=== PATIENT | male | born 1990 | race Caucasian/White ===

== ENCOUNTER 2018-03-27 14:17 | Emergency (ER) | payer SELFPAY ==
[2018-03-27 14:25] VITALS: BP 123/81; PULSE 82; RESP 15; TEMP 36.5; O2SAT 99; BMI 25.0
== END 2018-03-27 15:28 | disposition left against medical advice (07) ==
PROVIDERS: Emergency Provider Emergency Medicine; PCP Family Medicine Sports Medicine
DX: R07.9 Chest pain, unspecified (principal)
CPT/HCPCS: 99281; 99282

== ENCOUNTER 2022-06-21 06:32 | Day surgery (SDC) | payer OTHER, SELFPAY ==
[2022-06-16 15:10] VITALS: BMI 24.7
[2022-06-21] VITALS (15 sets, daily range): BP systolic 84–135; BP diastolic 47–100; PULSE 54–98; RESP 10–20; TEMP 36.2–36.9; O2SAT 58–100; BMI 25.0
[2022-06-21] MEDS: LACTATED RINGERS 1,000 ML 42 ML IV (07:29)
[2022-06-21] MEDS: ACETAMINOPHEN 325 MG TABLET 975 MG PO (07:29)
[2022-06-21] MEDS: GABAPENTIN 600 MG TABLET PO (07:29)
--- NOTE | 2022-06-21 07:42 | PM.PREOP ---
Pre-operative Note COVID-19 COVID-19 status: Not tested Criteria for continued procedure: Expected advancement of disease process, Possibility delay results in more complex future surgery or treatment, Increased loss of function, Continuing or worsening of significant or severe pain, Deterioration of the patient's condition or overall health and Delay expected to result in less-positive ultimate med/surg outcome Interval Note History & Physical reviewed/Exam performed by Physician: Yes Changes to H&P: No
[2022-06-21] MEDS: CEFAZOLIN 2 GM/100 ML PREMIX 100 ML IV (08:18)
--- NOTE | 2022-06-21 08:34 | SUR.OPER ---
Supine on padded OR bed, head on pillow, arms secured on padded arm boards at <90 degrees abduction, legs uncrossed, safety belt at thigh, tape over blanket over lower legs.
[2022-06-21] MEDS: BUPIVACAINE 0.25% (PF) 30 ML, EPINEPHrine 0.3 MG INJ (08:45)
[2022-06-21] MEDS: methylPREDNISolone acet DEPO 40 MG/ML VIAL INJ (08:46)
--- NOTE | 2022-06-21 09:53 | P.OP_ITS ---
Operative Date/Time/Diagnoses Date of procedure: 06/21/22 Time of procedure: 08:00 Pre-op diagnosis: 1. L4-5, L5-S1 disc herniation with radiculopathy 2. Spinal Stenosis Post-op diagnosis: same Procedure & Clinicians Procedure: 1. L4-5 right microdiscectomy 2. L5-S1 left microdiscectomy 3. Utilization of microsurgical technique and operating microscope Same procedure as scheduled: Yes Indications: Patient has been having back pain and worsening lumbar radiculopathy affecting both legs due to a work injury. Patient failed multiple conservative management with worsening pain weakness and numbness in his lower extremity. Patient has been having difficulty performing activity of daily living. After discussing risks benefits of treatment options, patient elected proceed with surgery. Surgeon: Katie Segundo Can Bander Operator: Christina Padilla Click Yes if Unassisted: No Anesthesia Type: General Operative Notes Closure Type: primary Specimen(s): none sent Estimated Blood Loss (mL): 5 Blood products transfused: none Procedure in detail: Patient was seen in the preoperative area. Risks and benefits of the surgery was discussed with the patient. Informed consent was obtained from the patient and placed in the chart. Surgical site was marked. Patient was taken to the operative room. General anesthesia was administered. Prophylactic antibiotic was given to the patient less than 30 min before the incision was made. Patient was placed into a prone position on the Crispin table. Patient's back was then prepped and draped in the sterile fashion. Time-out was performed at this time. Using AP and lateral C-arm imaging the interval between L4-5 was identified and marked on patient's back. A 1 inch incision 1 in from midline was made on the right side. The fascia was incised in line with skin incision. Globus MARS retractors was placed inside the incision and docked onto the L4 lamina. Using microsurgical technique and operating microscope, a L4 laminotomy was performed using a Kerrison rongeur. Liagamentum flavum was resected at the site of the laminotomy. The disc space at L4-5 was identified. Microdiscectomy was performed by incising the annulus with #11 blade. Microcurettes and pituitary was used to removed herniated disc fragments of disc from the epidural space. After the microdiskectomy at L4-5 was completed, the area medial lateral superior and inferior to the area of the microdiskectomy was inspected and explored using a micro curette. No other impinging structure was identified. A separate incision was made over the L5-S1 level on the left side. The MARs retractor was then redirected over the L5-S1 level under x-ray guidance and docked on the L5 lamina. Using microsurgical technique and operating microscope, a L5 laminotomy was performed using a Kerrison rongeur. Liagamentum flavum was resected at the site of the laminotomy. The disc space at L5-S1 was identified. Microdiscectomy was performed by incising the annulus with #11 blade. Microcurettes and pituitary was used to removed herniated disc fragments of disc from the epidural space. After the microdiskectomy at L5-S1 was completed, the area medial lateral superior and inferior to the area of the microdiskectomy was inspected and explored using a micro curette. No other impinging structure was identified. The wound was then irrigated with sterile normal saline. 40 mg Depo-Medrol was placed into the epidural space. The deep fascia was closed with 1-0 Vicryl. The subcutaneous tissue was closed with 2-0 Vicryl. The skin was closed with skin mark. Patient tolerated the procedure well. There were no complications. Patient was transferred recovery room in stable condition. Complications: none Post-operative Condition: stable Disposition: PACU Plan for aftercare: Admit to inpatient hospital
--- NOTE | 2022-06-21 09:55 | DI.RAD.S_ITS ---
PROCEDURE: XR LUMBAR SPINE 2-3V INDICATIONS: L4-5, L5-S1 TLIF TECHNIQUE: 2 views of the lumbar spine were acquired. COMPARISON: [facility] MR, MR LUMBAR SPINE WITHOUT CONTRAST, 02/14/2022, 16:00. [facility] Outside [facility], CR, XR LUMBAR SPINE 2 OR 3 VIEWS, 11/22/2021, 13:29. FINDINGS: Intraoperative image demonstrating localization overlying L5. Degenerative disc and foraminal narrowing are present L5. IMPRESSION: Intraoperative localization. Dictated by: Dulce Landis M.D. on 06/21/2022 at 20:50 Approved by: Dulce Landis M.D. on 06/21/2022 at 20:51
[2022-06-21] MEDS: fentaNYL 100 MCG/2 ML INJ IV ×2 (10:25→10:39)
[2022-06-21] MEDS: OXYCODONE IR 5 MG TABLET PO (10:32)
--- NOTE | 2022-06-21 11:37 | SUR.PHASEII ---
Pt voided, no pain, no numbness or tingling.
== END 2022-06-21 11:40 | disposition home or self-care (01) ==
PROVIDERS: PCP Family Medicine Sports Medicine; Referring Provider Orthopaedic Surgery Orthopaedic Surgery of the Spine; Visit Provider Orthopaedic Surgery Orthopaedic Surgery of the Spine
PROC: (CPT 63030; principal; 2022-06-21 07:45)
DX: M51.26 Other intervertebral disc displacement, lumbar region (principal); M54.17 Radiculopathy, lumbosacral region; J45.909 Unspecified asthma, uncomplicated; Y93.H3 Activity, building and construction; Y92.89 Other specified places as the place of occurrence of the external cause; Y99.0 Civilian activity done for income or pay
CPT/HCPCS: 63030; 63035; 72100; 76000; J0171; J0330; J0690; J1030; J1100; J1170; J1885; J2405; J2704; J3010

== ENCOUNTER 2023-05-28 10:04 | Inpatient (IN) | payer OTHER, SELFPAY ==
[2023-04-26 09:43] VITALS: BMI 24.5
[2023-05-28] VITALS (12 sets, daily range): BP systolic 89–136; BP diastolic 52–93; PULSE 65–125; RESP 14–18; TEMP 36.2–37; O2SAT 94–100; BMI 24.5
--- NOTE | 2023-05-28 | DI.RAD.S_ITS ---
PROCEDURE: XR LUMBAR SPINE 2-3V INDICATIONS: L4-5 TLIF, L5-S1 HEMILAMINECTOMY TECHNIQUE: Three intraoperative fluoroscopic views of the lumbar spine were acquired. COMPARISON: [facility], , XR LUMBAR SPINE 2-3V, 06/21/2022, 8:32. FINDINGS: Intraoperative fluoroscopy demonstrates L4-5 disc spacer and subsequent transpedicular screws at L4 and L5. Alignment is maintained. IMPRESSION: Intraoperative fluoroscopy for L4-5 fusion. Dictated by: Rhiannon Rivero M.D. on 05/28/2023 at 13:58 Approved by: Rhiannon Rivero M.D. on 05/28/2023 at 13:59
[2023-05-28] MEDS: LACTATED RINGERS 1,000 ML 42 ML IV ×2 (10:23→12:16)
[2023-05-28] MEDS: ACETAMINOPHEN 325 MG TABLET 975 MG PO (10:28)
[2023-05-28] MEDS: GABAPENTIN 300 MG CAPSULE PO (10:29)
--- NOTE | 2023-05-28 11:01 | PM.HP.1 ---
History of Present Illness History of Present Illness Date Patient Seen: 05/28/23 Time Patient Seen: 11:03 Date of Onset of Symptoms: 11/12/21 Chief complaint: Lumbar Hemilaminectomy Narrative: Mr. Segovia is a 33 yo M with history of work injury on 11/12/21 which caused his radiculopathy to limit his mobility. He is s/p RIGHT L4-5 and LEFT L5-S1 microdiscectomy completed 06/21/2022. He has persisting pain to the left leg with pain, weakness and numbness. He had earlier improvement of his symptoms post surgery but his symptoms worsened over the last 2 months. He tried activities modification and medications with no relief. [facility] Medical History (Updated 04/26/23 @ 10:16 by Nena Galloway RN) History of COVID-19 (~12/2022) IBS (irritable bowel syndrome) Acid reflux Chronic diarrhea Anesthesia complication Asthma Protruded lumbar disc Lumbar radiculopathy Surgical History (Updated 04/26/23 @ 10:07 by Nena Galloway RN) History of esophagogastroduodenoscopy (EGD) Hx of colonoscopy Hx of microdiscectomy (06/21/22) Social History household members: family Smoking Status: Never smoker alcohol intake: former Meds Home Medications and Allergies Home Medications Medication Instructions Recorded Confirmed Type albuterol sulfate 90 mcg/actuation 2 puff inhalation Q4H PRN 03/27/18 04/26/23 History aerosol inhaler Shortness Of Breath Or Wheezing ipratropium 0.5 mg-albuterol 3 mg 3 ml inhalation QID PRN Shortness 03/27/18 04/26/23 History (2.5 mg base)/3 mL nebulization Of Breath Or Wheezing soln loperamide 2 mg-simethicone 125 mg 2 tab PO QAM 04/26/23 05/28/23 History tablet Allergies Allergy/AdvReac Type Severity Reaction Status Date / Time No Known Drug Allergies Allergy Verified 05/28/23 10:46 Review of Systems Review of Systems ROS: Yes All systems reviewed with the patient and are negative except as otherwise documented Exam Vital Signs (past 8 hours): - 05/28/23 10:36 Temperature 97.2 F L Pulse Rate 92 H Respiratory Rate 18 Blood Pressure 132/84 Pulse Oximetry 100 Oxygen Delivery Method Room Air Oxygen Delivery Method Room Air Const General: cooperative Back/Spine/Pelvis Other: pain with ROM of lumbar spine. Previous scar well healed. No skin lesions. Neuro Other: + straight leg raise to LLE, sensibility decreased to bilateral L5 and left S1 dermatome, motor strength 4/5 in bilateral EHL and left gastroc. DTR 1 / 3 in left achilles. Assessment & Plan Assessment & Plan narrative: Mr. Patterson is here forhis lumbar. He has been treating his back and leg pain since 11/12/21 due to a work injury. He had previous lumbar microdiscectomy with temporary relief. He currently has post surgery changes along with recurrent disc herniation at L4-5 level with L5-S1 foramen narrowing. He failed multiple conservative care with worsening leg pain, weakness and numbness. He has difficulty performing activity of daily living due to his back and leg symptoms. He will benefit from total laminectomy and total facetecmies at L4-5 to fully decompress his neurologic structures, which will render his L4-5 level grossly unstable and will require a fusion procedure at the same time. Risks for surgery include but not limited to bleeding, infection, nerve/dura/bladder/bowel/blood vessel injury, need for additional procedure, even . Patient understands and would like to proceed with surgery. I scheduled him for L4-5 TLIF and L5-S1 hemilaminectomy.
[2023-05-28] MEDS: CEFAZOLIN 2 GM/100 ML PREMIX 100 ML IV ×2 (11:20→20:39)
--- NOTE | 2023-05-28 11:49 | SUR.OPER ---
Prone on spine table, head in foam head support, padded chest and pelvic supports, gel pad at knees, lower legs supported by pillows; nipples, genitalia and toes free of pressure, arms secured on foam padded arm boards at <90 degrees abduction. Tape over blanket at thigh secured to table.
[2023-05-28] MEDS: BUPIVACAINE LIPOSOME 266 MG/20 ML VIAL INJ (11:57)
[2023-05-28] MEDS: BUPIVACAINE 0.25% (PF) 60 ML, EPINEPHrine 0.15 MG INJ (11:58)
--- NOTE | 2023-05-28 13:50 | P.OP_ITS ---
Operative Date/Time/Diagnoses Date of procedure: 05/28/23 Time of procedure: 11:00 Pre-op diagnosis: 1. L4-5 recurrent disc herniation 2. History of L4-5, L5-S1 microdiscectomy with epidural scarring 3. L5-S1 lateral recess stenosis with radiculopathy Post-op diagnosis: same Procedure & Clinicians Procedure: 1. L4-5 Postero-lateral and posterior interbody fusion 2. L4-5 interbody cage placement. 3. L4-5 decompressive laminectomy with bilateral facetecomies 4. L4-5 Posterior non-segmental instrumentation 5. Left L5-S1 hemilaminectomy 6. [place] of bone marrow from iliac crest 7. Utilization of microsurgical technique and operating microscope Same procedure as scheduled: Yes Indications: Patient has been having chronic back pain and worsening lumbar radiculopathy. Patient has been having progressive leg pain weakness and numbness with history of lumbar microdiskectomy at both L4-5 L5-S1 level. Patient's MRI showed a recurrent disc herniation L4-5 with residual lateral recess stenosis at L5-S1 correlating with his symptoms. Patient failed multiple conservative management with worsening pain weakness and numbness in his lower extremity. Patient has been having difficulty performing activity of daily living. After discussing risks benefits of treatment options, patient elected proceed with surgery. Surgeon: Katie Segundo Motor Driver: Christina Padilla Click Yes if Unassisted: No Anesthesia Type: General Operative Notes Closure Type: primary Specimen(s): none sent Prosthetic devices, grafts, tissues, transplants, or devices: Globus revolve screws, Rise cage Estimated Blood Loss (mL): 50 Blood products transfused: none Procedure in detail: Patient was seen in the preoperative area. Risks and benefits of the surgery was discussed with the patient. Informed consent was obtained from the patient and placed in the chart. Surgical site was marked. Patient was taken to the operative room. General anesthesia was administered. Prophylactic antibiotic was given to the patient less than 30 min before the incision was made. Patient was placed into a prone position on the Crispin table. Patient's back was then prepped and draped in the sterile fashion. Time-out was performed at this time. Using AP and lateral C-arm imaging the interval between L4-5 was identified and marked on patient's back. A 2 inch incision 2 in from midline was made on the left side first. The fascia was incised in line with skin incision. Globus MARS retractors was placed inside the incision and docked onto the L4 lamina. Using microsurgical technique and operating microscope, a L4 laminectomy and L4-5 facetectomy was performed using a Kerrison rongeur. The laminectomy and facetectomy was performed in order to decompress patient's cauda equina as well as the nerve roots exiting at the L4-5 level. Patient was found have scant amount of epidural scarring from prior surgery which was carefully resected during the process of decompression. The disc space at L4-5 was identified. And a total diskectomy was performed at L4-5 level. The endplates were decorticated using a rasp and shaver. The total diskectomy and decortication was performed at L4-5 level in order to to accomplish a L4-5 fusion. The local bone from the laminectomy and facetectomy was saved for local bone grafting. After the total diskectomy and decortication was completed, DBM bone graft material was combined with local bone that was harvested earlier. At this time, a separate skin is incision was made over the iliac crest. A Jamshidi needle was inserted into the iliac crest through a separate skin incision. 5 cc of bone marrow aspiration was obtained through the separate skin incision using a Jamshidi needle from the iliac crest. The bone marrow aspiration was combined with local bone and the DBM bone grafting material. The bone grafting material was placed into the L4-5 interbody space along with a expandable cage. The cage was expanded to its maximum height using the torque limiting screwdriver. At this time the MARS retractor was redirected over the L5 lamina. Using microsurgical technique and operating microscope, a L5-S1 heminectomy was performed using the Kerrison rongeur. The ligamentum flavum was also resected at the side of the hemilaminectomy for further decompression of the epidural space. At this time a mirror image incision was made on the right side. The fascia was incised in line with the skin incision. Globus MARS retractor was inserted and docked onto the L4-5 posterolateral gutter. Using the power drill, posterior- lateral decortication was performed at L4-5 level until bleeding cortical bone was identified. The remaining bone grafting material was placed into the L4-5 posterior lateral gutter he order to accomplish posterolateral fusion at the L4- 5 level. Using the double C-arm technique, pedicle screws were placed into the L4 and L5 pedicles bilaterally. This was done by placing the Jamshidi needle into the pedicles, then placing the guidewires over the Jamshidi needle, and finally placing the cannulated screws over the guidewires bilaterally. After the pedicle screws were placed, 2 titanium rods was locked into the heads of the pedicle screws using locking caps and torque limiting screwdriver. After all the hardware was placed, and confirmed with AP and lateral C-arm imaging, the wound was then irrigated with sterile normal saline and packed with Ray-Fer gauze for 3 min to accomplish hemostasis. After the gauze was removed the deep fascia was closed with #1 Vicryl suture. The subcutaneous layer was closed with 2-0 Vicryl. The skin was closed with skin mark. Patient tolerated the procedure well. There were no complications. The Operation could not have been safely performed without compromising the technical result or length of the procedure, without the assistance of a skilled surgical instrument technician. The surgical instrument technician was medically necessary for proper positioning, retraction and manipulation of instruments, proper exposure, surgical preparation, and manipulation of tissue. EMG and SSEP was used to monitor patient's neurological status. Patient's neuro monitors signal was stable throughout entire procedure. Complications: none Post-operative Condition: stable Disposition: PACU Plan for aftercare: Admit to inpatient hospiital
[2023-05-28] MEDS: ALBUTEROL/IPRATROPIUM 3 ML AMPUL INH (14:20)
[2023-05-28] MEDS: OXYCODONE IR 5 MG TABLET PO (14:38)
[2023-05-28] MEDS: HYDROMORPHONE 0.5 MG INJ IV (15:27)
--- NOTE | 2023-05-28 17:22 | PC.NURSE ---
Addendum entered by Alison Rogers R.N. 05/28/23 19:29: Patients heart rate up to 130s, was around 117 prior. He was also just bladder scanned for 968 and we are going to place a wright catheter now. Patient also ordered a nicotine patch. He is resting now and report given to director of audiology. Original Note: Patient to floor aroun 1500. His dressing to his lower back is cdi with xeroform gauze, mark, and tape. Patient given dilaudid iv for discomfort and helpful to patient. He has been having visitors in and out of his room and his father is also visiting. He denies numbness or tingling at this time.
[2023-05-28] MEDS: OXYCODONE IR 10 MG TABLET PO ×2 (17:41→23:11)
[2023-05-28] MEDS: LACTATED RINGERS 1,000 ML 125 ML IV (17:42)
[2023-05-28] MEDS: DOCUSATE 100 MG CAPSULE PO (20:43)
[2023-05-28] MEDS: NICOTINE 7 MG PATCH TOP (21:10)
--- NOTE | 2023-05-29 00:01 | PC.NURSE ---
Addendum entered by Nena Velazquez R.N. 05/29/23 07:01: HR in 80's while asleep, increases to 90s-low 100's while awake. States that pain has been effectively managed by ordered pain medications. 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 Tachycardic in the 120's-130's at rest, states that he has pain in the bladder from retaining urine, otherwise feels fine. Bladder scan: 970cc. Notified MD Segundo, new orders for cont tele monitoring & indwelling wright catheter. 850cc drained after wright placement, patient stated that he felt much better. HR in the low 100's after placement of urinary catheter. Incision on back is covered w/ gauze & medipore tape, CDI with a small amount of serosanguinous shadow drainage. IVF & abx infusing as ordered. SCDs are on. Educated patient on use of incentive spirometer, tolerated well. Denies N/V, chest pain, or difficulty breathing. OOB w/ 1 PA, ambulated a few steps. Oriented to call-light. Plan of care ongoing.
[2023-05-29] MEDS: HYDROMORPHONE 0.5 MG INJ IV ×4 (00:28→17:58)
[2023-05-29] MEDS: LACTATED RINGERS 1,000 ML 125 ML IV (00:59)
[2023-05-29] MEDS: OXYCODONE IR 10 MG TABLET PO ×6 (02:16→23:31)
[2023-05-29] MEDS: CEFAZOLIN 2 GM/100 ML PREMIX 100 ML IV (02:59)
[2023-05-29 06:24] VITALS: BP 114/70; PULSE 96; RESP 16; TEMP 36.4; O2SAT 100
--- NOTE | 2023-05-29 07:35 | PM.PNPO.1 ---
Subjective Subjective Date Patient Seen: 05/29/23 Time Patient Seen: 07:35 Interval history: Patient states his pain has been moderate to severe. Denies any fever chills. No nausea or vomiting. His caregiver desats shoulder surgery and will be somewhat limited in ability to assist him. Otherwise without complaints. Exam Vital Signs (past 8 hours): - 05/29/23 06:24 Temperature 97.6 F Pulse Rate 96 H Respiratory Rate 16 Blood Pressure 114/70 Pulse Oximetry 100 Oxygen Flow Rate 0 Oxygen Delivery Method Room Air Oxygen Flow Rate 0 Narrative Exam Narrative: 33-year-old male resting comfortably in bed in no apparent distress. Motor functions intact bilateral lower extremities. Sensation grossly intact to light touch bilateral lower extremities. Const General: cooperative and comfortable Nutritional Appearance: average body habitus Orientation: alert Resp Effort & Inspection: normal respiratory effort and able to speak in complete sentences [facility] Medical History History of COVID-19 (~12/2022) IBS (irritable bowel syndrome) Acid reflux Chronic diarrhea Anesthesia complication Asthma Protruded lumbar disc Lumbar radiculopathy Surgical History History of esophagogastroduodenoscopy (EGD) Hx of colonoscopy Hx of microdiscectomy (06/21/22) Social History household members: family Smoking Status: Never smoker alcohol intake: former Assessment & Plan Post-op Postoperative Procedures: Procedures Operation Date: 05/28/23 11:15 Actual Procedure Side Surgeon p L4-5 TLIF, L5-S1 hemilaminectomy Not Applicable Katie Segundo MD Postoperative day: 1 Postoperative status: doing well and marginal pain control Postoperative plan: routine post-op care Postoperative plan narrative: DC catheter. Work on pain control. Discharge home today or tomorrow Quality VTE Deep Vein Thrombosis/Pulmonary Embolism Present on Admission: No
[2023-05-29 08:00] VITALS: BP 115/60; PULSE 100; RESP 18; TEMP 36.4; O2SAT 99
[2023-05-29] MEDS: DOCUSATE 100 MG CAPSULE PO ×2 (08:10→20:38)
[2023-05-29] MEDS: SIMETHICONE 80 MG TABLET 120 MG PO (08:10)
--- NOTE | 2023-05-29 08:55 | OT.IP.EVAL ---
Current Diagnoses Other intervertebral disc displacement, lumbar region (05/28/23) Postlaminectomy syndrome, not elsewhere classified (05/28/23) Surgery Performed Operation Date: 05/28/23 11:15 Actual Procedures p L4-5 TLIF, L5-S1 hemilaminectomy(Not Applicable) - Katie Segundo MD Past Medical History (Last Reviewed 05/29/23 @ 07:36 by Aime Lozano PA-C) Acid reflux Anesthesia complication Asthma Chronic diarrhea History of COVID-19 (~12/2022) IBS (irritable bowel syndrome) Lumbar radiculopathy Protruded lumbar disc Surgical History (Last Reviewed 05/29/23 @ 07:36 by Aime Lozano PA-C) History of esophagogastroduodenoscopy (EGD) Hx of colonoscopy Hx of microdiscectomy (06/21/22) Occupational Therapy Inpatient Evaluation/Re-Eval M1 PT/OT-IP Prior Functional Status Start: 05/29/23 09:46 Freq: NEEDED Status: Active Protocol: Document 05/29/23 09:46 [facility] (Rec: 05/29/23 10:00 [facility] [id number]) Medical Review Prior Functional Status Communication independent Mobility and Gait Independent without a device but had pain. Activities of Daily Living and IADL's I, but had pain during ADl and IADL needs. Prior Functional Level (Other details) Pt thinking about staying with his sister versus dad's place for more accessible set-up and also sister's place does not have pets. Set-up based on sister's house. Social History Household Members family Living Arrangements House Number of Floors (Floors) Two Floors Number of Stairs To Enter/Railing? 1 step with left rail to enter to level where he can stay. Home Environment Standard Height Toilet,Walk in Shower,Bidet Home Equipment Front Wheel Walker,Hand Held Shower,Lift Recliner M2 OT-IP Current Condition Start: 05/29/23 09:46 Freq: Status: Active Protocol: Document 05/29/23 09:46 [facility] (Rec: 05/29/23 10:00 [facility] [id number]) Occupational Therapy Current Condition Current Condition Evaluation Date 05/29/23 Treatment Diagnosis S/P L4-5 TLIF, L5-S1 hemilaminectomy Diagnosis Onset Date 05/28/23 Post Operative Precautions Lumbar Precautions Log Roll,No Twisting,Limit Bending,Lifting Restriction of 10 lbs,Gait Belt above Incisional Area M3 OT- IP Subjective and Pain Start: 05/29/23 09:46 Freq: Status: Active Protocol: Document 05/29/23 09:46 [facility] (Rec: 05/29/23 10:00 [facility] [id number]) OT- Subjective Occupational Therapy Visit Type Type Initial Evaluation Visit Start Time 08:55 Visit Stop Time 09:45 Occupational Therapy Visit Comments Patient Comments Pt agreed to get up. Patient/Caregiver Goals To go home. OT Pain Assessment Pain When Pain Assessed At Rest Pain Present Pain Present Pain Reported Location back Intensity 5 Scale Used Numeric (0 - 10) M4 OT- IP ADL's Start: 05/29/23 09:46 Freq: Status: Active Protocol: Document 05/29/23 09:46 [facility] (Rec: 05/29/23 10:00 [facility] [id number]) OT SDJ-[id number] General Evaluation Self-Feeding Ability Independent OT ADL-Grooming Comments OT Grooming Comments Not performed as in too much pain. OT ADL-Oral Care Comments Oral Care Comments Educated to spit into a cup versus hinge at his hips to best follow his back precautions. OT ADL-Dressing General Eval Lower Body Dressing Ability Maximum Assistance Comments OT Dressing Comments ABle to practice use of LB dressing equipment for socks and underwear and educated to dress his weaker leg first, RLE and take out last. OT ADL-Toileting General Evaluation Toileting Ability Total Assistance Areas Needing Assistance Empty Catheter or Colostomy Comments OT Toileting Comments Catheter just take out at the end of the session. Pt is very heavy handed due to BLE weaken and would benefit from a BSC. OT ADL-Bathing Comments OT Bathing Comments Pt will benefit from a shower chair with arms. Educated pt of covering the dressing during showering needs to prevent it from getting wet. M5 OT- IP IADL's Start: 05/29/23:46 Freq: Status: Active Protocol: Document 05/29/23 09:46 [facility] (Rec: 05/29/23 10:00 [facility] [id number]) OT-Instrumental Activities of Daily Living Home Safety Awareness Awareness of Need for Assistance at Home Good Awareness Ability to Problem Solve Emergency Able to Problem Solve Situations Medication Management Medication Management No Deficits Identified Medication Management Comments Pt may benefit form assist initially as groggy. Money Management Money Management No Deficits Identified Meal Preparation Meal Preparation Caregiver Provides Assist Displayer Displayer Caregiver Provides Assist M6 OT- IP Functional Cognition Start: 05/29/23 09:46 Freq: Status: Active Protocol: Document 05/29/23 09:46 [facility] (Rec: 05/29/23 10:00 [facility] [id number]) Cognitive Factors Limiting Selfcare Function Cognitive Ability Level of Alertness Alert Patient Orientation Name,Age,Birthday,Month,Date, Year,Day of Week,Place, Situation Attention Span Ability Capable of Focused Attention, Capable of Sustained Attention Ability to Follow Commands Able to Follow One Step Commands Safety Awareness Decreased Ability to Apply Precautions Cognitive Comments Cognitive Assessment Comments Pt needing vc for log rolling and transitions and able to follow back precautions for ADL and mobility needs. OT- Vision and Hearing OT- Hearing Assessment OT- Hearing Assessment WFL OT- Vision Assessment Visual Acuity WFL M7 OT- IP Mobility and Balance Start: 05/29/23 09:46 Freq: Status: Active Protocol: Document 05/29/23 09:46 [facility] (Rec: 05/29/23 10:00 [facility] [id number]) OT- Bed Mobility Assessment Supine to Sit Supine to Sit Assist Minimal Assistance Sit to Supine Sit to Supine Assist Minimal Assistance Scooting Scooting to Edge of Bed Standby Assistance Scooting Up and Down in Bed Standby Assistance OT-Transfer Assessment Sit to and From Stand Sit to and from Stand Minimal Assistance Transfers Transfer Ability Contact Guard Assistance Technique Transfer Destination Bed,Chair Transfer Technique Stand Step Pivot Devices Transfer Assistive Devices Gait Belt,Front Wheeled Walker Comments Mobility Comments LESLEE to assist to help get his trunk upright and to assist to get his legs back into bed. LESLEE to stand and cues to hinge at his hips so able to get weight over his legs when comign to stand. OT- Balance Assessment Sitting Balance and Reactions Static Sitting Balance Ability Fair Dynamic Sitting Balance Ability Fair Standing Balance and Reactions Static Standing Balance Ability Fair Dynamic Standing Balance Ability Fair M8 OT- IP Objective Assessments Start: 05/29/23 09:46 Freq: Status: Active Protocol: Document 05/29/23 09:46 [facility] (Rec: 05/29/23 10:00 [facility] [id number]) OT Gross Range of Motion Upper Extremity Range of Motion ROM Impairments WFL for ADL needs today. OT Strength Comments Strength Comments WFL for ADL needs. M9 OT- IP Assessment and Plan Start: 05/29/23 09:46 Freq: Status: Active Protocol: Document 05/29/23 09:46 [facility] (Rec: 05/29/23 10:00 [facility] [id number]) OT Summary Assessment and Plan Potential Rehabilitation Potential Excellent Analytic Complexity at Evaluation Low Summary OT Impairments Pain,Strength,Balance, Functional Mobility,Grooming, Dressing,Toileting,Bathing, Toilet Transfers,Shower Transfers,Activity Tolerance Progress Towards Goals Progressing Toward Goals,Slow Progress due to Pain Assessment Summary Pt low complexity and main barriers are pain, transitions for ADl and mobility needs. Pt now thinking of going to his sister's home when medically stable. Pt will benefit from getting ADL equipment- able to write a list for the pt. Pt to go home when medically stable. Goals Self-Feeding Goal Independent Grooming Goal Independent Dressing Goal Independent,Primer And Powder Canning Leader,Sock Aid Toileting Goal Independent Bathing Goal Standby Assistance Toilet Transfer Goal Independent Shower Transfer Goal Standby Assistance Patient/Caregiver Education Goal Demonstrate Post-Op Precautions Days to Meet Goals 10 Frequency of Treatment Frequency Of Treatment Once a Day Treatment Plan OT Treatment Plan ADL Training,Functional Mobility,Patient/Family Education,Discharge Planning Discharge Recommendations OT Discharge Recommendations Home with Assistance Home Equipment Needs BSC, shower chair with armrests, LB dressing equipment Transportation Needs at Discharge Private Vehicle
--- NOTE | 2023-05-29 10:00 | PT.IIE ---
Current Diagnoses Other intervertebral disc displacement, lumbar region (05/28/23) Postlaminectomy syndrome, not elsewhere classified (05/28/23) Surgery Performed Operation Date: 05/28/23 11:15 Actual Procedures p L4-5 TLIF, L5-S1 hemilaminectomy(Not Applicable) - Katie Segundo MD Surgical History (Last Reviewed 05/29/23 @ 07:36 by Aime Lozano PA-C) History of esophagogastroduodenoscopy (EGD) Hx of colonoscopy Hx of microdiscectomy (06/21/22) Medical History (Last Reviewed 05/29/23 @ 07:36 by Aime Lozano PA-C) Acid reflux Anesthesia complication Asthma Chronic diarrhea History of COVID-19 (~12/2022) IBS (irritable bowel syndrome) Lumbar radiculopathy Protruded lumbar disc Physical Therapy Inpatient Evaluation/Re-Eval M1 PT/OT-IP Prior Functional Status Start: 05/29/23 11:52 Freq: NEEDED Status: Active Protocol: Document 05/29/23 10:00 [facility] (Rec: 05/29/23 12:10 [facility] [id number]) Medical Review Prior Functional Status Medical History Reviewed Yes Communication able to make needs known Mobility and Gait pt stated that he was independent with all mobilities and ambulation without AD Activities of Daily Living and IADL's Per OT note: I, but had pain during ADl and IADL needs. Social History Household Members family Living Arrangements House Number of Floors (Floors) Two Floors Number of Stairs To Enter/Railing? pt plans to go to her sister's house upon d/c: info provided was regarding sister's house 2 level house: pt will stay on main level of the house 2 step L rail ascending to enter the house Home Environment Standard Height Toilet,Walk in Shower,Bidet Home Equipment Front Wheel Walker,Hand Held Shower,Grab Bars Near Toilet Additional Social History Comment pt lives with his dad and step mom but dad works and step mom just had shoulder sx. pt plans to stay at her sister's house for a few days pt plans to sleep on a recliner couch M2 PT-IP Current Condition Start: 05/29/23 11:52 Freq: NEEDED Status: Active Protocol: Document 05/29/23 10:00 [facility] (Rec: 05/29/23 12:10 [id number]) Physical Therapy Current Condition Current Condition Evaluation Date 05/29/23 Treatment Diagnosis s/p L4-5 TLIF;L5S1 hemilami; difficulty in walking Onset Date 05/28/23 M3 PT-IP Subjective Start: 05/29/23 11:52 Freq: NEEDED Status: Active Protocol: Document 05/29/23 10:00 [facility] (Rec: 05/29/23 12:10 [id number]) Subjective Physical Therapy Visit Type Type Initial Evaluation Visit Start Time 10:00 Visit Stop Time 10:30 Number of DIESEL FITTER MECHANIC Visits 0 Physical Therapy Visit Comments Patient Comments agreeable to do PT Therapy Pain Assessment Pain When Pain Assessed At Rest Pain Present Pain Present Pain Reported Location back Intensity 7 Scale Used Numeric (0 - 10) Pain Management Techniques Distraction,Modification of Treatment,Re-positioning, Timing of Activity with Medications M4 PT-IP Mobility and Gait Start: 05/29/23 11:52 Freq: NEEDED Status: Active Protocol: Document 05/29/23 10:00 [facility] (Rec: 05/29/23 12:10 [id number]) PT-Bed Mobility Assessment Rolling Type of Rolling Log Rolling Level of Assist Standby Assistance Supine to Sit Supine to Sit Standby Assistance Sit to Supine Sit to Supine Standby Assistance PT-Transfer Assessment Sit to and From Stand Sit to and from Stand Minimal Assistance,1 Person Assistance,Use of Upper Extremities Equipment Transfer Assistive Device Gait Belt,Front Wheeled Walker Orthotic/Prosthetic Devices or Brace: No Comments Mobility Comments pt supine in bed. c/o increase LBP. agreed to do PT. obtained PLOF and home set up from pt. pt just finished with OT. pt able to recall his back precautions. BP in supine: 91/58. completed log roll supine<>sit SBA. able to sit on EOB SBA. BP sittin/68. completed sit to stand min A from EOB. ambulated in room using FWW min A ~ 30 ft. presents with unsteady decrease step width and decrease LE elevation in walking. pt requested to go back to bed. completed sit to supine SBA and cues. positioned pt in bed. call light and table placed within reach. informed pt regarding cargiver training and stated that he will let his family know. caregiver training set up for this afternoon at 130pm. Gait Assessment Gait Gait Assistance Required: Minimum Assistance Distance (Feet) 30 Able to Maintain Weight Bearing Status Yes During Gait Assistive Devices Assistive Device Gait Belt,Front Wheeled Walker Orthotic/Prosthetic Devices or Brace: No Gait Deviations General Gait Pattern Antalgic,Decreased Stride Length,Decreased Feet Clearance,Step-to Gait Factors Limiting Gait Function Factors Limiting Gait Function Decreased Activity Tolerance, Decreased Strength,Limited Range of Motion,Pain,Poor Balance,Poor Safety Awareness PT-Balance Assessment Sitting Balance and Reactions Static Sitting Balance Ability Good Dynamic Sitting Balance Ability Good Standing Balance and Reactions Static Standing Balance Ability Fair Dynamic Standing Balance Ability Fair Device Used FWW M5 PT-IP Objective Assessments Start: 05/29/23 11:52 Freq: NEEDED Status: Active Protocol: Document 05/29/23 10:00 [facility] (Rec: 05/29/23 12:10 AB [id number]) Orientation Orientation/Cognition Level of Alertness Alert Orientation Name,Place,Situation Language Function Ability No Deficits Noted Safety Awareness Decreased Safety Awareness Memory Description No Deficits Noted Gross Range of Motion Lower Extremity ROM Assessment Within Functional Limits Strength Lower Extremity Strength Assessment Bilaterally Impaired Hip 3+/5 Knee 3+/5 Muscle Tone Muscle Tone WNL Yes M6 PT-IP Treatment Start: 05/29/23 11:52 Freq: NEEDED Status: Active Protocol: Document 05/29/23 10:00 [facility] (Rec: 05/29/23 12:10 AB [id number]) Physical Therapy Treatment Education Education Provided Precautions,Weight Bearing Status,Safety M7 PT-IP Assessment and Plan Start: 05/29/23 11:52 Freq: NEEDED Status: Active Protocol: Document 05/29/23 10:00 [facility] (Rec: 05/29/23 12:10 AB [id number]) PT Summary Assessment and Plan Potential Rehabilitation Potential Fair Status of Condition at Evaluation Evolving Summary Impairments Pain,ROM,Strength,Balance, Coordination,Sensation,Tone, Cognition,Bed Mobility, Transfers,Gait,Activity Tolerance Assessment Summary pt is a 33 y/o M s/p L4-5 TLIF , L5S1 hemilami POD 1. pt with back precautions. pt requiring min A for transfers and ambulation using FWW. pt c /o increase back pain affecting mobility level and activity tolerance. pt plans to go to his sister's house upon d/c. caregiver training set up for this afternoon at 130 pm. will continue to assess. Goals Bed Mobility Goal Independent Transfer Goal Independent,Front Wheeled Walker Gait Goal Independent,Front Wheel Walker Gait Distance 200 Other Goals up/down 2 steps L rail ascending SBA Days to Meet Goals 5 Frequency of Treatment Frequency Of Treatment Twice a Day Treatment Plan Physical Therapy Treatment Plan Bed Mobility Training,Transfer Training,Gait Training, Therapeutic Exercise,Balance Retraining,Post Op Education, Discharge Planning,Hot or Cold Pack,Neuromuscular Re-ed, Coordination Retraining,Manual Therapy Precautions Lumbar Precautions Log Roll,No Twisting,Limit Bending,Lifting Restriction of 10 lbs,Gait Belt above Incisional Area Recommendations To Nursing Amount of Assist Needed 1 Person Assist Discharge Recommendations PT Discharge Recommendations Home with Assistance Transportation Needs at Discharge Private Vehicle
[2023-05-29 12:00] VITALS: BP 110/73; PULSE 82; RESP 16; TEMP 37.2; O2SAT 94
--- NOTE | 2023-05-29 13:40 | PT.IPTN ---
Current Diagnoses Other intervertebral disc displacement, lumbar region (05/28/23) Postlaminectomy syndrome, not elsewhere classified (05/28/23) Surgery Performed Operation Date: 05/28/23 11:15 Actual Procedures p L4-5 TLIF, L5-S1 hemilaminectomy(Not Applicable) - Katie Segundo MD Physical Therapy Treatment Note M2 PT-IP Current Condition Start: 05/29/23 11:52 Freq: NEEDED Status: Active Protocol: Document 05/29/23 10:00 AB (Rec: 05/29/23 12:10 AB [id number]) Physical Therapy Current Condition Current Condition Evaluation Date 05/29/23 Treatment Diagnosis s/p L4-5 TLIF;L5S1 hemilami; difficulty in walking Onset Date 05/28/23 M3 PT-IP Subjective Start: 05/29/23 11:52 Freq: NEEDED Status: Active Protocol: Document 05/29/23 13:40 AB (Rec: 05/29/23 16:04 AB [id number]) Subjective Physical Therapy Visit Type Type Treatment Note Visit Start Time 13:40 Visit Stop Time 14:10 Number of DISPLAY COORDINATOR Visits 0 Physical Therapy Visit Comments Patient Comments agreeable to do PT Therapy Pain Assessment Pain When Pain Assessed At Rest Pain Present Pain Present Pain Reported Location back Scale Used intense pain per pt Pain Management Techniques Distraction,Modification of Treatment,Re-positioning, Timing of Activity with Medications M4 PT-IP Mobility and Gait Start: 05/29/23 11:52 Freq: NEEDED Status: Active Protocol: Document 05/29/23 13:40 AB (Rec: 05/29/23 16:04 AB [id number]) PT-Bed Mobility Assessment Rolling Type of Rolling Log Rolling Level of Assist Standby Assistance Supine to Sit Supine to Sit Standby Assistance Sit to Supine Sit to Supine Standby Assistance PT-Transfer Assessment Sit to and From Stand Sit to and from Stand Minimal Assistance,1 Person Assistance,Use of Upper Extremities Equipment Transfer Assistive Device Gait Belt,Front Wheeled Walker Orthotic/Prosthetic Devices or Brace: No Transfers Transfer Destination Toilet Transfer Technique ambulated Transfer Ability Level of Assist Minimal Assistance,1 Person Assistance,Use of Upper Extremities Comments Mobility Comments pt supine in bed and requesting to use the toilet. pt's dad in room for training . pt stated that he is not going to her sister's house but will now going back home and pt's dad is off work to assist him. educated pt's dad regarding pt's back precautions and log roll bed mobility. pt completed log roll supine to sit SBA. able to sit on EOB SBA. educated pt 's dad regarding use of safety belt and how to assist pt. dad was able to put safety belt on pt and assisted pt with sit to stand. pt ambulated towards the toilet using FWW min A with dad assisting. pt was able to use the toilet using fWW for support CGA with dad assisting pt. pt ambulated out from the toilet and ambulated ~ 40 ft using FWW min A and sat on the chair. stair climbing training. educated pt on stair climbing. pt stated that he does not have rails with the 2 steps they have to enter the house. pt does not have a SPC but has crutches. educated pt on how to do stairs using crutches. educated pt's dad on how to assist pt. pt ambulated to the platform step using fWW min A. completed up /down platform step x 2 sets using crutches min A and cues. pt's dad was able to assist pt. pt ambulated back to his room and requested to go back to bed. completed sit to supine log roll SBA. positioned pt in bed. call light and table placed within reach. Gait Assessment Gait Gait Assistance Required: Minimum Assistance Distance (Feet) 40 Able to Maintain Weight Bearing Status Yes During Gait Assistive Devices Assistive Device Gait Belt,Front Wheeled Walker Orthotic/Prosthetic Devices or Brace: No Gait Deviations General Gait Pattern Decreased Stride Length, Decreased Feet Clearance Factors Limiting Gait Function Factors Limiting Gait Function Decreased Activity Tolerance, Decreased Strength,Limited Range of Motion,Pain,Poor Balance,Poor Safety Awareness Stair Climbing Assessment Evaluation Level of Assist On Stairs Minimal Assistance Devices Stair Climbing Assistive Devices Axillary Crutches Technique/Endurance Stair Climbing Direction Ascend and Descend Stair Climbing Technique Step to Step Number of Steps Climbed 1 Stair Climbing Set # Repetitions (reps) 2 M5 PT-IP Objective Assessments Start: 05/29/23 11:52 Freq: NEEDED Status: Active Protocol: Document 05/29/23 10:00 AB (Rec: 05/29/23 12:10 AB [id number]) Orientation Orientation/Cognition Level of Alertness Alert Orientation Name,Place,Situation Language Function Ability No Deficits Noted Safety Awareness Decreased Safety Awareness Memory Description No Deficits Noted Gross Range of Motion Lower Extremity ROM Assessment Within Functional Limits Strength Lower Extremity Strength Assessment Bilaterally Impaired Hip 3+/5 Knee 3+/5 Muscle Tone Muscle Tone WNL Yes M6 PT-IP Treatment Start: 05/29/23 11:52 Freq: NEEDED Status: Active Protocol: Document 05/29/23 13:40 AB (Rec: 05/29/23 16:04 AB [id number]) Physical Therapy Treatment Education Education Provided Precautions,Safety M7 PT-IP Assessment and Plan Start: 05/29/23 11:52 Freq: NEEDED Status: Active Protocol: Document 05/29/23 13:40 AB (Rec: 05/29/23 16:04 AB [id number]) PT Summary Assessment and Plan Potential Rehabilitation Potential Fair Summary Impairments Pain,ROM,Strength,Balance, Coordination,Sensation,Tone, Cognition,Bed Mobility, Transfers,Gait,Activity Tolerance Progress Towards Goals Slow Progress due to Pain,Slow Progress due to Activity Tolerance Assessment Summary pt requiring min A with mobility using FWW. caregiver training conducted and pt's dad was able to assist pt with mobility. pt plans to go home and dad will assist. will continue to assess progress. Goals Bed Mobility Goal Independent Transfer Goal Independent,Front Wheeled Walker Gait Goal Independent,Front Wheel Walker Gait Distance 200 Other Goals up/down 2 steps L rail ascending SBA Days to Meet Goals 5 Frequency of Treatment Frequency Of Treatment Twice a Day Treatment Plan Physical Therapy Treatment Plan Bed Mobility Training,Transfer Training,Gait Training, Therapeutic Exercise,Balance Retraining,Post Op Education, Discharge Planning,Hot or Cold Pack,Neuromuscular Re-ed, Coordination Retraining,Manual Therapy Precautions Lumbar Precautions Log Roll,No Twisting,Limit Bending,Lifting Restriction of 10 lbs,Gait Belt above Incisional Area Recommendations To Nursing Amount of Assist Needed 1 Person Assist Discharge Recommendations PT Discharge Recommendations Home with Assistance Transportation Needs at Discharge Private Vehicle
--- NOTE | 2023-05-29 15:31 | CM.DANOTE ---
Patient is a 33 yo male who was admitted INPT on 05/28/23 for TLIF. Pt has L&I for insurance and his PCP is [facility]. EMR was reviewed. Per Ortho, pt tolerated procedure well but having some urinary retention and pain control issues and possible discharge today vs tomorrow pending progress. Per PT/OT, home with assist, CG training today at 1330. SW met bedside with pt and explained role and pt confirms he lives in [place] with his dad and step mom and pt is independent with ADL and was working until he had his work injury on his back. Pt denies any hx of HH or SNF and DPOA is informally his father. Pt confirms he plans to d/c to his sister's house as his dad works and sister can assist more. Pt does not anticipate any further needs at discharge and is hopeful to discharge home tonight. Plan: SW to follow closely for plan of home to sister's house and outpt f/u and any further identified discharge planning needs. 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 No Advance Directives on File No History Provided By Patient,Medical Record Has Patient been admitted in last 30 No days? Prior Living Arrangements House Household Members family Type of transporation used prior to Drives own vehicle admit Independent with ADL's Yes Is patient alert and oriented? Yes Caregiver for Another No Patient/Family Preference OP PT Therapy Barriers to Discharge No Discharge Plan Home Transportation Arrangement family Referrals Initiated None needed Whiteboard Updated in Patient Room with Yes name and ext. # of Shale Planer Operator Helper Review Status In Process Please Provide Date Initial DC 05/29/23 Assessment Was Performed Next Review Type Continued Stay Review Pre-Anesthesia Assessment Start: 04/26/23 09:42 Freq: Status: Active Protocol: Document 04/26/23 09:43 CAB (Rec: 04/26/23 10:28 CAB [id number]) Pre-Anesthesia Assessment PAC Comment Pt requests a nicotine patch, has quit chewing tobacco Patient Information Reviewed Via Phone Assessment Assessment Completed With Patient Diagnostic Results BMP/CMP,CBC,EKG Comment Outside labs/EKG scanned Primary Care Provider None Seen Specialist in Last 12 Months Yes Specialist Seen Orthopedist Primary Language German Glassware Selector Required No Height 170.18 cm Weight 71.214 kg Body Mass Index (BMI) 24.5 Hearing Ability Normal Visual Impairment No Limitations Visual Assist None Dentition Type Teeth, Natural Present,Teeth, Missing Barriers to Learning None Hx Anesthesia Reactions Yes: When they injected with anesthesia I felt muscle stiffness and hot, but Additional comment then I was out. Nausea post- op. Hx Family Anesthesia Reaction No Hx Malignant Hyperthermia No Hx Blood Transfusions No Hx Blood Transfusion Reaction No Anesthesia Review Requested No Roller Varnisher No alcohol intake former Alcohol Intake Frequency Other: Sober x 2 years Smoking Status Never smoker how long ago did patient quit smoking Quit chewing tobacco 6 months ago Substance Use Type does not use Pain Present Pain Reported Musculoskeletal Symptoms Abnormal Gait,Back Pain,Muscle Cramps,Muscle Weakness, Numbness,Radiating Pain into Limb History of Falling (Recent or History of No ) Patient is completely paralyzed or No completely immobile Mental Status Oriented to own ability Is patient on oxygen? No Does patient have DELACRUZ/SOB No Hx Sleep Apnea No CPAP/BIPAP use not prescribed Currently Taking a Beta Kulwinder No Can You Climb a Flight of Stairs Without Yes SOB Hx Chest Pain No Hx SOB No Hx Syncope or Dizziness No Anti-Coagulant Therapy No Has a Section Cutter No Cardiac Testing No Hx Pacemaker/ICD No Pacemaker Rep Required? No Cardiac Clearance Received Not Applicable Diet Type At Home Regular Dysphagia No Gastrointestinal Symptoms Diarrhea,Reflux Urinary Catheter Present No Hx Urinary Self Catheterization No Diabetes No Hx Drug Resistant Organism No Presence of External or Internal Medical No Devices Received a COVID vaccine? Yes Received all doses? No Marital Status Single Lives With family Current Living Arrangements House Number of Floors (Floors) One Floor Support System Parent(s) Does the Patient Have Assistance After Yes Surgery Patient Discharge Plan Description Return Home Comment Pt advised possible a week length of stay per surgeon Feels Safe in Current Environment Yes Been Physically Hurt or Threatened By a No Person in Current Environment Do you have thoughts of harming yourself None or others? Are you currently considering suicide? No Do you have a plan to hurt yourself or No Plan others? Do You Have Any Spiritual Beliefs That No May Affect Your HC Choices? Do You Have Any Cultural Practices That No May Affect Your HC Choices? Who Can We Speak to About Patient's Care Family, friends Identifying Code for Release of Patient Declines to issue Information Health Care Proxy/Next of Kin John reynoso) Health Care Proxy Emergency Contact Name John reynoso) Emergency Contact Advance Directives? No Power of Home Delivery Driver No PAC Instructions Durable medical equipment, Medications to take/avoid, Nasal antibiotic,No ETOH/ petroleum product on skin DOS, Pre-op antibiotic,Pre-surgical wash,Sensory aids,Sturdy shoes/comfortable clothes,Do not bring valuables and remove jewelry
[2023-05-29 16:00] VITALS: BP 110/73; PULSE 86; RESP 16; TEMP 37.2; O2SAT 100
[2023-05-29 20:00] VITALS: BP 138/77; PULSE 74; RESP 16; TEMP 37; O2SAT 96
[2023-05-29] MEDS: NICOTINE 7 MG PATCH TOP (21:37)
[2023-05-30] VITALS (8 sets, daily range): BP systolic 107–129; BP diastolic 62–77; PULSE 76–101; RESP 16–20; TEMP 36.4–38.6; O2SAT 95–99
[2023-05-30] MEDS: OXYCODONE IR 10 MG TABLET PO ×3 (02:43→11:20)
[2023-05-30] MEDS: HYDROMORPHONE 0.5 MG INJ IV (04:13)
[2023-05-30] MEDS: ACETAMINOPHEN 325 MG TABLET 650 MG PO ×3 (07:38→21:19)
[2023-05-30] MEDS: MAGNESIUM HYDROXIDE 30 ML UDC PO (07:38)
--- NOTE | 2023-05-30 08:36 | PM.PNPO.1 ---
Subjective Subjective Date Patient Seen: 05/30/23 Time Patient Seen: 08:15 Interval history: Leonardo is having a hard time getting his pain under control. He required Dilaudid last night, otherwise pain has been controlled with oxycodone 10mg. He has difficultly getting up out of bed and urinating. He has been working with PT. He says the numbness down his left leg has improved. He feels nauseous but no vomiting. Exam Vital Signs (past 8 hours): - 05/30/23 04:00 Temperature 98.2 F Pulse Rate 98 H Respiratory Rate 16 Blood Pressure 129/72 Pulse Oximetry 99 Oxygen Flow Rate 0 Oxygen Delivery Method Room Air Oxygen Flow Rate 0 Narrative Exam Narrative: Dressing appear to have draining coming through the padding. No increase pain to palpation to the posterior thigh or calf bialterally. Sensation grossly intact bilaterally to light touch of the legs. No foot drop noted. Able to dorsiflex and plantarflex at the ankles bilaterally. Resp Effort & Inspection: normal respiratory effort and able to speak in complete sentences [facility] Medical History History of COVID-19 (~12/2022) IBS (irritable bowel syndrome) Acid reflux Chronic diarrhea Anesthesia complication Asthma Protruded lumbar disc Lumbar radiculopathy Surgical History History of esophagogastroduodenoscopy (EGD) Hx of colonoscopy Hx of microdiscectomy (06/21/22) Social History household members: family Smoking Status: Never smoker alcohol intake: former Assessment & Plan Post-op Postoperative Procedures: Procedures Operation Date: 05/28/23 11:15 Actual Procedure Side Surgeon p L4-5 TLIF, L5-S1 hemilaminectomy Not Applicable Katie Segundo MD Postoperative day: 2 Postoperative plan: routine post-op care and ambulate Postoperative plan narrative: Continue to work with PT. Multi-modal pain control. Ordered oxycodone 5mg and visaril 25mg to assist control lower grade pain and nausea. Plan on discharging home tomorrow. Time Spent With Patient Time with patient: less than 15 minutes Quality VTE Deep Vein Thrombosis/Pulmonary Embolism Present on Admission: No
[2023-05-30] MEDS: DOCUSATE 100 MG CAPSULE PO ×2 (09:21→20:28)
[2023-05-30] MEDS: SIMETHICONE 80 MG TABLET 120 MG PO (09:24)
--- NOTE | 2023-05-30 10:00 | PT.IPTN ---
Current Diagnoses Other intervertebral disc displacement, lumbar region (05/28/23) Postlaminectomy syndrome, not elsewhere classified (05/28/23) Surgery Performed Operation Date: 05/28/23 11:15 Actual Procedures p L4-5 TLIF, L5-S1 hemilaminectomy(Not Applicable) - Katie Segundo MD Physical Therapy Treatment Note M2 PT-IP Current Condition Start: 05/29/23 11:52 Freq: NEEDED Status: Active Protocol: Document 05/29/23 10:00 AB (Rec: 05/29/23 12:10 AB [id number]) Physical Therapy Current Condition Current Condition Evaluation Date 05/29/23 Treatment Diagnosis s/p L4-5 TLIF;L5S1 hemilami; difficulty in walking Onset Date 05/28/23 M3 PT-IP Subjective Start: 05/29/23 11:52 Freq: NEEDED Status: Active Protocol: Document 05/30/23 10:27 TS (Rec: 05/30/23 10:38 TS [id number]) Subjective Physical Therapy Visit Type Type Treatment Note Visit Start Time 10:00 Visit Stop Time 10:24 Number of GOVERNMENT SERVICE EXECUTIVE Visits 1 Physical Therapy Visit Comments Patient Comments Pt reports pain is 4/10, has some lightheadedness with ambulation. Therapy Pain Assessment Pain When Pain Assessed At Rest Pain Present Pain Present Pain Reported Location back Intensity 4 Scale Used Numeric (0 - 10) Pain Management Techniques Distraction,Modification of Treatment,Re-positioning, Timing of Activity with Medications M4 PT-IP Mobility and Gait Start: 05/29/23 11:52 Freq: NEEDED Status: Active Protocol: Document 05/30/23 10:27 TS (Rec: 05/30/23 10:38 TS [id number]) PT-Bed Mobility Assessment Rolling Type of Rolling Log Rolling Level of Assist Standby Assistance Supine to Sit Supine to Sit Standby Assistance Sit to Supine Sit to Supine Standby Assistance Scooting Scooting to Edge of Bed Standby Assistance PT-Transfer Assessment Sit to and From Stand Sit to and from Stand Standby Assistance Equipment Transfer Assistive Device Gait Belt,Front Wheeled Walker Orthotic/Prosthetic Devices or Brace: No Comments Mobility Comments Logroll to L side SBA with good awareness of spinal precautions. Supine to sit SBA , pt demonstrates good carryover. STS from bed with FWW SBA. He ambulated ~175'SBA with FWW and slow step thru gait. He performed steps x2 with crutches and CGA with good balance. Pt ambulated back to room, sit to supine SBA with logroll. Pt reported some lightheadedness with ambulation once back in bed, BP 104/69 supine. Pt was left in bed, all needs met. Gait Assessment Gait Gait Assistance Required: Standby Assistance Distance (Feet) 175 Able to Maintain Weight Bearing Status Yes During Gait Assistive Devices Assistive Device Gait Belt,Front Wheeled Walker Orthotic/Prosthetic Devices or Brace: No Gait Deviations General Gait Pattern Decreased Stride Length, Decreased Feet Clearance Factors Limiting Gait Function Factors Limiting Gait Function Decreased Activity Tolerance, Decreased Strength,Limited Range of Motion,Pain,Poor Balance,Poor Safety Awareness Stair Climbing Assessment Evaluation Level of Assist On Stairs Contact Guard Assistance Devices Stair Climbing Assistive Devices Axillary Crutches Technique/Endurance Stair Climbing Direction Ascend and Descend Stair Climbing Technique Step to Step Number of Steps Climbed 1 Stair Climbing Set # Repetitions (reps) 2 PT-Balance Assessment Sitting Balance and Reactions Static Sitting Balance Ability Good Dynamic Sitting Balance Ability Good Standing Balance and Reactions Static Standing Balance Ability Fair Dynamic Standing Balance Ability Fair Device Used FWW M5 PT-IP Objective Assessments Start: 05/29/23 11:52 Freq: NEEDED Status: Active Protocol: Document 05/29/23 10:00 AB (Rec: 05/29/23 12:10 AB [id number]) Orientation Orientation/Cognition Level of Alertness Alert Orientation Name,Place,Situation Language Function Ability No Deficits Noted Safety Awareness Decreased Safety Awareness Memory Description No Deficits Noted Gross Range of Motion Lower Extremity ROM Assessment Within Functional Limits Strength Lower Extremity Strength Assessment Bilaterally Impaired Hip 3+/5 Knee 3+/5 Muscle Tone Muscle Tone WNL Yes M6 PT-IP Treatment Start: 05/29/23 11:52 Freq: NEEDED Status: Active Protocol: Document 05/30/23 10:27 TS (Rec: 05/30/23 10:38 TS [id number]) Physical Therapy Treatment Education Education Provided Precautions,Safety M7 PT-IP Assessment and Plan Start: 05/29/23 11:52 Freq: NEEDED Status: Active Protocol: Document 05/30/23 10:27 TS (Rec: 05/30/23 10:38 TS [id number]) PT Summary Assessment and Plan Potential Rehabilitation Potential Fair Summary Impairments Pain,ROM,Strength,Balance, Coordination,Sensation,Tone, Cognition,Bed Mobility, Transfers,Gait,Activity Tolerance Progress Towards Goals Slow Progress due to Pain,Slow Progress due to Activity Tolerance Assessment Summary Leonardo is making good progress with his mobility. He progressed his gait to ~175' SBA with FWW. He has a slow step thru gait with weakness in BLE's, had no buckling or LOB. He continues to perform steps x2 with crutches and demonstrates good carryover. He demonstrates good awareness of his spinal precautions during mobility. PT is recommending pt return home with assist. Goals Bed Mobility Goal Independent Transfer Goal Independent,Front Wheeled Walker Gait Goal Independent,Front Wheel Walker Gait Distance 200 Other Goals up/down 2 steps L rail ascending SBA Days to Meet Goals 5 Frequency of Treatment Frequency Of Treatment Twice a Day Treatment Plan Physical Therapy Treatment Plan Bed Mobility Training,Transfer Training,Gait Training, Therapeutic Exercise,Balance Retraining,Post Op Education, Discharge Planning,Hot or Cold Pack,Neuromuscular Re-ed, Coordination Retraining,Manual Therapy Precautions Lumbar Precautions Log Roll,No Twisting,Limit Bending,Lifting Restriction of 10 lbs,Gait Belt above Incisional Area Recommendations To Nursing Amount of Assist Needed 1 Person Assist Discharge Recommendations PT Discharge Recommendations Home with Assistance Transportation Needs at Discharge Private Vehicle
--- NOTE | 2023-05-30 11:20 | OT.IP.TRT ---
Current Diagnoses Other intervertebral disc displacement, lumbar region (05/28/23) Postlaminectomy syndrome, not elsewhere classified (05/28/23) Surgery Performed Operation Date: 05/28/23 11:15 Actual Procedures p L4-5 TLIF, L5-S1 hemilaminectomy(Not Applicable) - Katie Segundo MD Occupational Therapy Treatment Note M2 OT-IP Current Condition Start: 05/29/23 09:46 Freq: Status: Active Protocol: Document 05/29/23 09:46 [facility] (Rec: 05/29/23 10:00 [facility] [id number]) Occupational Therapy Current Condition Current Condition Evaluation Date 05/29/23 Treatment Diagnosis S/P L4-5 TLIF, L5-S1 hemilaminectomy Diagnosis Onset Date 05/28/23 Post Operative Precautions Lumbar Precautions Log Roll,No Twisting,Limit Bending,Lifting Restriction of 10 lbs,Gait Belt above Incisional Area M3 OT- IP Subjective and Pain Start: 05/29/23 09:46 Freq: Status: Active Protocol: Document 05/30/23 11:29 [facility] (Rec: 05/30/23 11:37 [facility] [id number]) OT- Subjective Occupational Therapy Visit Type Type Treatment Note Visit Start Time 10:55 Visit Stop Time 11:20 Occupational Therapy Visit Comments Patient Comments Pt wanting to get up to use the bathroom. Patient/Caregiver Goals TO go home. OT Pain Assessment Pain When Pain Assessed At Rest Pain Present Pain Present Pain Reported Location Head Intensity 5 Scale Used Numeric (0 - 10) M4 OT- IP ADL's Start: 05/29/23 09:46 Freq: Status: Active Protocol: Document 05/30/23 11:29 [facility] (Rec: 05/30/23 11:37 [facility] [id number]) OT LKW-Uvjg-Rqyvtsg General Evaluation Self-Feeding Ability Independent OT ADL-Grooming General Evaluation Grooming Ability Independent OT ADL-Oral Care General Eval Oral Care Ability Independent Comments Oral Care Comments Able to do while seated. OT ADL-Dressing General Eval Lower Body Dressing Ability Maximum Assistance Areas Needing Assistance Socks OT ADL-Toileting General Evaluation Toileting Ability Contact Guard Assistance Comments OT Toileting Comments Pt able to stand with fww over the toilet and able to urinate. Pt concerned that he is not urinating much, nurse able to talk to pt. OT ADL-Bathing Comments OT Bathing Comments Educated best to cover the dressing while showering and have a shower chair. M5 OT- IP IADL's Start: 05/29/23 09:46 Freq: Status: Active Protocol: Document 05/29/23 09:46 [facility] (Rec: 05/29/23 10:00 [facility] [id number]) OT-Instrumental Activities of Daily Living Home Safety Awareness Awareness of Need for Assistance at Home Good Awareness Ability to Problem Solve Emergency Able to Problem Solve Situations Medication Management Medication Management No Deficits Identified Medication Management Comments Pt may benefit form assist initially as groggy. Money Management Money Management No Deficits Identified Meal Preparation Meal Preparation Caregiver Provides Assist Education Program Associate Education Program Associate Caregiver Provides Assist M6 OT- IP Functional Cognition Start: 05/29/23 09:46 Freq: Status: Active Protocol: Document 05/30/23 11:29 [facility] (Rec: 05/30/23 11:37 [facility] [id number]) Cognitive Factors Limiting Selfcare Function Cognitive Ability Level of Alertness Alert,Drowsy Patient Orientation Name,Age,Birthday,Month,Date, Year,Day of Week,Place, Situation Attention Span Ability Capable of Focused Attention, Capable of Sustained Attention Ability to Follow Commands Able to Follow One Step Commands Cognitive Comments Cognitive Assessment Comments Pt a bit drowsy but able to follow his back precautions better today. M7 OT- IP Mobility and Balance Start: 05/29/23 09:46 Freq: Status: Active Protocol: Document 05/30/23 11:29 [facility] (Rec: 05/30/23 11:37 [facility] [id number]) OT- Bed Mobility Assessment Supine to Sit Supine to Sit Assist Standby Assistance Scooting Scooting to Edge of Bed Standby Assistance Scooting Up and Down in Bed Standby Assistance OT-Transfer Assessment Sit to and From Stand Sit to and from Stand Contact Guard Assistance Transfers Transfer Ability Standby Assistance Technique Transfer Destination Bed,Toilet Transfer Technique Stand Step Pivot Devices Transfer Assistive Devices Gait Belt,Front Wheeled Walker Comments Mobility Comments BP supine 102/66, sitting 108/ 61, and standing 108/58. Mainly complaining of a headache, nursing aware. CGA to stand and SBA once up on his feet. OT- Balance Assessment Sitting Balance and Reactions Static Sitting Balance Ability Good Dynamic Sitting Balance Ability Good Standing Balance and Reactions Static Standing Balance Ability Good Dynamic Standing Balance Ability Good M8 OT- IP Objective Assessments Start: 05/29/23 09:46 Freq: Status: Active Protocol: Document 05/29/23 09:46 [facility] (Rec: 05/29/23 10:00 [facility] [id number]) OT Gross Range of Motion Upper Extremity Range of Motion ROM Impairments WFL for ADL needs today. OT Strength Comments Strength Comments WFL for ADL needs. M9 OT- IP Assessment and Plan Start: 05/29/23 09:46 Freq: Status: Active Protocol: Document 05/30/23 11:29 [facility] (Rec: 05/30/23 11:37 [facility] [id number]) OT Summary Assessment and Plan Potential Rehabilitation Potential Excellent Analytic Complexity at Evaluation Low Summary OT Impairments Pain,Strength,Balance, Functional Mobility,Grooming, Dressing,Toileting,Bathing, Toilet Transfers,Shower Transfers,Activity Tolerance Progress Towards Goals Progressing Toward Goals,Slow Progress due to Pain Assessment Summary Pt now states to go home to his dad's house. Pt doing better today with mobility and ADL needs. Pt will still benefit from assist at home for IADL needs and showering. Pt to go home with assist when medically stable. Pt states his headache is bothering him more than his back at this time. Nursing aware. Goals Self-Feeding Goal Independent Grooming Goal Independent Dressing Goal Independent,Production Superintendent Hydro,Sock Aid Toileting Goal Independent Bathing Goal Standby Assistance Toilet Transfer Goal Independent Shower Transfer Goal Standby Assistance Patient/Caregiver Education Goal Demonstrate Post-Op Precautions Days to Meet Goals 5 Frequency of Treatment Frequency Of Treatment Once a Day Treatment Plan OT Treatment Plan ADL Training,Functional Mobility,Patient/Family Education,Discharge Planning Discharge Recommendations OT Discharge Recommendations Home with Assistance Home Equipment Needs BSC, shower chair with armrests, LB dressing equipment Transportation Needs at Discharge Private Vehicle
--- NOTE | 2023-05-30 13:15 | PT.IPTN ---
Current Diagnoses Other intervertebral disc displacement, lumbar region (05/28/23) Postlaminectomy syndrome, not elsewhere classified (05/28/23) Surgery Performed Operation Date: 05/28/23 11:15 Actual Procedures p L4-5 TLIF, L5-S1 hemilaminectomy(Not Applicable) - Katie Segundo MD Physical Therapy Treatment Note M2 PT-IP Current Condition Start: 05/29/23 11:52 Freq: NEEDED Status: Active Protocol: Document 05/29/23 10:00 AB (Rec: 05/29/23 12:10 AB [id number]) Physical Therapy Current Condition Current Condition Evaluation Date 05/29/23 Treatment Diagnosis s/p L4-5 TLIF;L5S1 hemilami; difficulty in walking Onset Date 05/28/23 M3 PT-IP Subjective Start: 05/29/23 11:52 Freq: NEEDED Status: Active Protocol: Document 05/30/23 13:15 AB (Rec: 05/30/23 13:35 AB [id number]) Subjective Physical Therapy Visit Type Type Treatment Note Visit Start Time 13:15 Visit Stop Time 13:30 Number of ROLLER PRINTER Visits 0 Physical Therapy Visit Comments Patient Comments agreeable to do PT Therapy Pain Assessment Pain When Pain Assessed At Rest Location back Scale Used pain scale not stated M4 PT-IP Mobility and Gait Start: 05/29/23 11:52 Freq: NEEDED Status: Active Protocol: Document 05/30/23 13:15 AB (Rec: 05/30/23 13:35 AB [id number]) PT-Bed Mobility Assessment Rolling Type of Rolling Log Rolling Level of Assist Standby Assistance Sit to Supine Sit to Supine Standby Assistance PT-Transfer Assessment Sit to and From Stand Sit to and from Stand Contact Guard Assistance,1 Person Assistance,Use of Upper Extremities Equipment Transfer Assistive Device Gait Belt,Front Wheeled Walker Orthotic/Prosthetic Devices or Brace: No Comments Mobility Comments pt sitting on EOB and stated that he just used the urinal. pt agreeable to do PT. completed sit to stand CGA and ambulated in the hallway ~ 75 ft using fWW CGA to min A and cues for L quads activation. pt with (+) L knee slight buckle but with recovery. pt ambulated back to his room. requested to go back to bed. completed log roll sit to supine SBA. positioned pt in bed. call light and table placed within reach. Gait Assessment Gait Gait Assistance Required: Contact Guard Assist,Minimum Assistance,1 Person Assist Distance (Feet) 75 Able to Maintain Weight Bearing Status Yes During Gait Assistive Devices Assistive Device Gait Belt,Front Wheeled Walker Orthotic/Prosthetic Devices or Brace: No Gait Deviations General Gait Pattern Decreased Stride Length, Decreased Feet Clearance Factors Limiting Gait Function Factors Limiting Gait Function Decreased Activity Tolerance, Decreased Strength,Pain,Poor Balance,Poor Safety Awareness M5 PT-IP Objective Assessments Start: 05/29/23 11:52 Freq: NEEDED Status: Active Protocol: Document 05/29/23 10:00 AB (Rec: 05/29/23 12:10 AB [id number]) Orientation Orientation/Cognition Level of Alertness Alert Orientation Name,Place,Situation Language Function Ability No Deficits Noted Safety Awareness Decreased Safety Awareness Memory Description No Deficits Noted Gross Range of Motion Lower Extremity ROM Assessment Within Functional Limits Strength Lower Extremity Strength Assessment Bilaterally Impaired Hip 3+/5 Knee 3+/5 Muscle Tone Muscle Tone WNL Yes M6 PT-IP Treatment Start: 05/29/23 11:52 Freq: NEEDED Status: Active Protocol: Document 05/30/23 13:15 AB (Rec: 05/30/23 13:35 AB [id number]) Physical Therapy Treatment Education Education Provided Precautions,Safety M7 PT-IP Assessment and Plan Start: 05/29/23 11:52 Freq: NEEDED Status: Active Protocol: Document 05/30/23 13:15 AB (Rec: 05/30/23 13:35 AB [id number]) PT Summary Assessment and Plan Potential Rehabilitation Potential Fair Summary Impairments Pain,ROM,Strength,Balance, Coordination,Sensation,Tone, Cognition,Bed Mobility, Transfers,Gait,Activity Tolerance Progress Towards Goals Slow Progress due to Pain Assessment Summary pt requiring SBA with bed mobility, CGA to min A for transfers and ambulation using FWW. caregiver training was completed yesterday and pt's dad was able to assist pt. pt may go home when medically stable. Goals Bed Mobility Goal Independent Transfer Goal Independent,Front Wheeled Walker Gait Goal Independent,Front Wheel Walker Gait Distance 200 Other Goals up/down 2 steps L rail ascending SBA Days to Meet Goals 5 Frequency of Treatment Frequency Of Treatment Twice a Day Treatment Plan Physical Therapy Treatment Plan Bed Mobility Training,Transfer Training,Gait Training, Therapeutic Exercise,Balance Retraining,Post Op Education, Discharge Planning,Hot or Cold Pack,Neuromuscular Re-ed, Coordination Retraining,Manual Therapy Precautions Lumbar Precautions Log Roll,No Twisting,Limit Bending,Lifting Restriction of 10 lbs,Gait Belt above Incisional Area Recommendations To Nursing Amount of Assist Needed 1 Person Assist Discharge Recommendations PT Discharge Recommendations Home with Assistance Transportation Needs at Discharge Private Vehicle
--- NOTE | 2023-05-30 14:33 | CM.DPC ---
DCP Cont. Reviewed EMR and team rounds for status updates. Per Ortho, pt had a fever overnight, which was resolved this morning, however he is still not having adequate pain control. Plan is to keep him overnight, with the plan for him to d/c tomorrow back to his sister's house for postoperative recovery.
[2023-05-30] MEDS: OXYCODONE IR 5 MG TABLET PO ×2 (14:34→21:19)
[2023-05-30] MEDS: hydrOXYzine HCL 25 MG TABLET PO ×2 (14:34→22:53)
[2023-05-30] MEDS: SENNOSIDES 8.6 MG TABLET 17.2 MG PO (20:28)
[2023-05-30] MEDS: NICOTINE 7 MG PATCH TOP (23:45)
[2023-05-31 00:17] VITALS: BP 110/69; PULSE 76; RESP 16; TEMP 36.3; O2SAT 98
[2023-05-31] MEDS: OXYCODONE IR 10 MG TABLET PO ×3 (01:02→12:34)
[2023-05-31] MEDS: ACETAMINOPHEN 325 MG TABLET 650 MG PO ×3 (01:02→11:25)
[2023-05-31] MEDS: OXYCODONE IR 5 MG TABLET PO (06:46)
--- NOTE | 2023-05-31 07:46 | PM.DS.1 ---
History of Present Illness History of Present Illness Date Patient Seen: 05/31/23 Time Patient Seen: 07:46 Chief complaint: Back pain Narrative: Patient states his pain is moderate to severe. Patient states his back pain has been better over the last day. Patient has headaches which started yesterday. Patient states Tylenol seems to help with his headache. No nausea or vomiting. No dizziness or shortness of breath. No vision changes. Discharge Providers Provider Date of admission: 05/28/23 10:04 Discharge Date: 05/31/23 Primary care physician: Lb Red MD Consults: 05/28/23 15:05 Consult to Occupational Therapy Evaluate & Treat Comment: Physician Instructions: Evaluate and treat Consult to Physical Therapy Evaluate & Treat Comment: Physician Instructions: Evaluate and Treat Discharge provider: Aime Lozano PA-C Summary Hospital Course Discharge Diagnosis: 1. L4-5 recurrent disc herniation 2. History of L4-5, L5-S1 microdiscectomy with epidural scarring 3. L5-S1 lateral recess stenosis with radiculopathy Hospital Course: 1. L4-5 Postero-lateral and posterior interbody fusion 2. L4-5 interbody cage placement. 3. L4-5 decompressive laminectomy with bilateral facetecomies 4. L4-5 Posterior non-segmental instrumentation 5. Left L5-S1 hemilaminectomy 6. [place] of bone marrow from iliac crest 7. Utilization of microsurgical technique and operating microscope Same procedure as scheduled: Yes Indications: Patient has been having chronic back pain and worsening lumbar radiculopathy. Patient has been having progressive leg pain weakness and numbness with history of lumbar microdiskectomy at both L4-5 L5-S1 level. Patient's MRI showed a recurrent disc herniation L4-5 with residual lateral recess stenosis at L5-S1 correlating with his symptoms. Patient failed multiple conservative management with worsening pain weakness and numbness in his lower extremity. Patient has been having difficulty performing activity of daily living. After discussing risks benefits of treatment options, patient elected proceed with surgery. Surgeon: Katie Segundo Rope Making Machine Operator: Christina Padilla Click Yes if Unassisted: No Anesthesia Type: General Operative Notes Closure Type: primary Specimen(s): none sent Prosthetic devices, grafts, tissues, transplants, or devices: Globus revolve screws, Rise cage Estimated Blood Loss (mL): 50 Blood products transfused: none Patient admitted to the hospital for the above-mentioned procedure. Patient consented to the same. Patient underwent L4-L5 fusion May 28, 2023. Patient has been slow to progress due to pain control. Pain management has made mobilizing with physical therapy difficult. Patient has been improving. Patient will be discharged home today after physical therapy if safe for home environment. Exam Vital Signs (past 8 hours): - 05/31/23 00:17 Temperature 97.3 F L Pulse Rate 76 Respiratory Rate 16 Blood Pressure 110/69 Pulse Oximetry 98 Oxygen Flow Rate 0 Oxygen Delivery Method Room Air Oxygen Flow Rate 0 Narrative Exam Narrative: 33-year-old male resting comfortably in bed in no apparent distress. Dressing is clean, dry and intact. Motor functions intact bilateral lower extremities. Sensation grossly intact to light touch bilateral lower extremities. Patient is able to roll over in bed easily without much discomfort to look at his dressing. Const General: cooperative and comfortable Nutritional Appearance: average body habitus Orientation: alert Resp Effort & Inspection: normal respiratory effort and able to speak in complete sentences [facility] Medical History History of COVID-19 (~12/2022) IBS (irritable bowel syndrome) Acid reflux Chronic diarrhea Anesthesia complication Asthma Protruded lumbar disc Lumbar radiculopathy Surgical History History of esophagogastroduodenoscopy (EGD) Hx of colonoscopy Hx of microdiscectomy (06/21/22) Social History household members: family Smoking Status: Never smoker alcohol intake: former Discharge Assessment & Plan Assessment and Plan Assessment: Patient progressing after L4-L5 fusion May 28, 2023 Plan of Treatment: Multimodal pain management Weightbearing as tolerated, limit bending, twisting, lifting Keep dressing clean and dry Discharge home today after physical therapy if safe for home environment Discharge Plan Discharge Plan Patient Disposition: Home Discharge orders & Medications Prescriptions: New acetaminophen 325 mg Tablet 650 mg PO Q4H PRN (Reason: Fever/Mild Pain (1-3)) Qty: 60 0RF docusate sodium 100 mg Capsule 100 mg PO BID Qty: 10 0RF hydroxyzine HCl 25 mg Tablet 25 mg PO Q6H PRN (Reason: Muscle Spasm) Qty: 40 0RF oxycodone 5 mg Tablet 5 mg PO Q3HR PRN (Reason: Pain, Moderate (4-6)) Qty: 40 0RF Continued loperamide-simethicone 2-125 mg Tablet 2 tab PO QAM Rx Instructions: do not exceed 4 tabs in 24 hrs ipratropium-albuterol 0.5 mg-3 mg(2.5 mg base)/3 mL solution for nebulization 3 ml Inhalation QID PRN (Reason: Shortness Of Breath Or Wheezing) Patient Comments: U 3 ML VIA NEB QID PRF WHZ OR SOB has not used in years albuterol sulfate 90 mcg/actuation HFA aerosol inhaler 2 puff Inhalation Q4H PRN (Reason: Shortness Of Breath Or Wheezing) Patient Comments: INL 2 PFS PO Q 4 H PRF WHZ OR SOB. has not taken in 5 years Follow up/Referrals: Katie Segundo MD [Physician] - 06/13/23 9:50 am (Follow up w/ Aime Lozano PA-C, at [facility] in [place].) Lb Red MD [Primary Care Provider] - Diet/Activity/Treatments Diet: Diet as Tolerated Activity: No deep bending or twisting at the waist. No lifting more than 10 pounds. Cold/Heat Therapy: Heating pad to low back as needed for pain. Skin/Wound/Dressing Care Report to your healthcare provider any signs of infection, such as:: chills, fever, night sweats, unusual drainage and unusual redness Dressing: May shower; keep dressing as dry as possible. If dressing becomes wet or dirty, may remove and replace with clean, dry gauze. No bathing or otherwise soaking incisions. Do not apply any creams, lotions, or ointments to incisions. Visit Report/Discharge Packet Instructions: DI for Prescription Opioid Use, DI for Transforaminal Lumbar Interbody Fusion Stand Alone Forms: Patient Portal/API, Stroke Signs & Symptoms, Surgery Discharge Discharge Data Primary Care Provider: Lb Red Quality VTE Deep Vein Thrombosis/Pulmonary Embolism Present on Admission: No
[2023-05-31 08:00] VITALS: BP 108/57; PULSE 66; RESP 18; TEMP 36.5; O2SAT 98
--- NOTE | 2023-05-31 08:18 | CM.DPC ---
DCP Cont. Reviewed EMR for status updates. Pt has been medically cleared for discharge home today, family will transport after he has worked with physical therapy. No further DCP needs indicated at this time.
[2023-05-31] MEDS: SIMETHICONE 80 MG TABLET 120 MG PO (09:36)
--- NOTE | 2023-05-31 11:30 | OT.IPNOTE ---
Finalized all OT needs with pt, no charge.
[2023-05-31 12:00] VITALS: BP 116/84; PULSE 66; RESP 16; TEMP 36.6; O2SAT 99
--- NOTE | 2023-05-31 13:37 | PC.NURSE ---
Day shift: Paperwork signed and all questions answered. HAs all personal belongings. scripts sent to his pharmacy electronic. Pain well controlled per APR. Left unit at approx [phone] via WC. Taken by SUSAN Carreon. Pt's Dad is driving him home to [facility]. CMS remains intact. Dressing on back is CDI.
== END 2023-05-31 13:39 | disposition home or self-care (01) | DRG 304 ==
PROVIDERS: Admitting Provider Orthopaedic Surgery Orthopaedic Surgery of the Spine; PCP Preventive Medicine Occupational Medicine; Referring Provider Orthopaedic Surgery Orthopaedic Surgery of the Spine; Visit Provider Orthopaedic Surgery Orthopaedic Surgery of the Spine
PROC: 0SG00AJ Fusion of Lumbar Vertebral Joint with Interbody Fusion Device, Posterior Approach, Anterior Column, Open Approach (ICD-10-PCS; principal; 2023-05-28 11:15)
DX: M51.16 Intervertebral disc disorders with radiculopathy, lumbar region (principal); M48.061 Spinal stenosis, lumbar region without neurogenic claudication; M96.1 Postlaminectomy syndrome, not elsewhere classified; J45.909 Unspecified asthma, uncomplicated; Y99.0 Civilian activity done for income or pay
CPT/HCPCS: 72100; 76000; 97116; 97162; 97165; 97530; 97535; A9270; C1713; C1831; C9290; J0171; J0330; J0690; J1100; J1170; J1885; J2250; J2405; J2704; J3010

== ENCOUNTER → 2024-03-16 13:14 | Outpatient (CLI) | payer OTHER, SELFPAY ==
[2023-05-28 10:14] VITALS: BMI 24.5
--- NOTE | 2024-03-16 | DI.MRI.S_ITS ---
PROCEDURE: MR LUMBAR SPINE WO CON INDICATIONS: Radiculopathy, lumbar region TECHNIQUE: Noncontrast sagittal T1 spin echo and T2 fast echo, sagittal STIR, and T2 fast spin echo through the lumbar spine. In cases with scoliosis, additional coronal T2 fast spin echo may be performed. COMPARISON: None. FINDINGS: Image quality: Excellent. Alignment and Curvature: There is normal bony alignment. Bone Marrow: L4-5 discectomy and fusion with posterior fransisca and screw instrumentation in good position. Spinal Cord: Conus medullaris terminates at the L1 level. Visualized cord demonstrates normal signal and size. Paraspinous Soft Tissues: No paravertebral masses. T12-L1: Normal appearance. L1-L2: Normal appearance. L2-L3: Normal appearance. L3-L4: Normal appearance. L4-L5: Discectomy and fusion. No central or foraminal stenosis. L5-S1: Disc space narrowing and arthropathy. No central stenosis. Mild right and moderate left foraminal stenosis. moderate left foraminal stenosis IMPRESSION: Degenerative disc disease and arthropathy at L5-S1 results in moderate left foraminal stenosis. Instrumented L5-S1 discectomy and fusion Approved by: Heriberto Bui M.D. on 03/17/2024 at 16:38
== END ==
LOC: MRI 13:15
PROVIDERS: PCP Preventive Medicine Occupational Medicine; Referring Provider Orthopaedic Surgery Orthopaedic Surgery of the Spine; Visit Provider Orthopaedic Surgery Orthopaedic Surgery of the Spine
DX: M51.17 Intervertebral disc disorders with radiculopathy, lumbosacral region (principal); M47.27 Other spondylosis with radiculopathy, lumbosacral region; M48.061 Spinal stenosis, lumbar region without neurogenic claudication; Z98.1 Arthrodesis status
CPT/HCPCS: 72148